=== PATIENT | male | born 1945 | race African-American/Black ===

== ENCOUNTER 2023-01-01 23:43 | Inpatient (IN) | payer OTHER ==
[2023-01-02 01:56] LABS: BASO % 0.1 % (0-2.0); EOS % 0.1 % (0-4.5); HEMATOCRIT 23.1 % (35.4-49); HEMOGLOBIN 7.9 GM/dL (11.7-16.9); LYMPH % 14.9 % (8-40); MCH 27.3 pg (25.7-33.7); MCHC 34.1 g/dl (32.0-35.9); MEAN CELL VOLUME 80.2 fl (80-96); MEAN PLT VOLUME 7.3 fl (7.5-11.1); MONO % 5.6 % (3.8-10.2); NEUT % 79.3 % (42.8-82.8); PLATELET COUNT 230 10^3/uL (134-434); RBC 2.88 M/mm3 (4.00-5.60); RDW 20.7 % (11.9-15.9); WHITE BLOOD COUNT 5.5 K/mm3 (4.0-10.0)
[2023-01-02 02:31] LABS: POTASSIUM 3.6 mmol/L (3.5-5.1)
[2023-01-02 02:33] LABS: ALBUMIN 1.5 g/dl (3.4-5.0); BLOOD UREA NITROGEN 102.7 mg/dL (7-18); CALCIUM 7.7 mg/dL (8.5-10.1)
[2023-01-02 02:37] LABS: BILIRUBIN,TOTAL 0.3 mg/dL (0.2-1); TOT PROT 6.6 g/dl (6.4-8.2)
[2023-01-02] MEDS: SODIUM CHLORIDE 0.9% 500 ML INFUS.BAG IV ONE ×3 (04:00→05:00)
[2023-01-02] MEDS: SODIUM CHLORIDE 1,000 ML IV SCH (04:30)
[2023-01-02] MEDS ORDERED: ACETAMINOPHEN 650 MG/20.3 ML ORAL SOLUTION (CUPS) PO PRN (04:31)
[2023-01-02] MEDS ORDERED: ARTIFICIAL TEARS (POLYVINYL ALCOHOL) OPTH DROPS OU PRN (06:42)
[2023-01-02] MEDS ORDERED: PANTOPRAZOLE 20 MG TABLET PO SCH (07:00)
[2023-01-02 08:05] LABS: MAGNESIUM 2.8 mg/dL (1.8-2.4)
[2023-01-02 08:08] LABS: PHOSPHOROUS 4.8 mg/dL (2.5-4.9)
[2023-01-02] MEDS: COLLAGENASE CLOSTRIDIUM HIST. 30 GRAMS TUBE TP SCH (09:10)
[2023-01-02] MEDS: ASCORBIC ACID 500 MG/5 ML UNIT DOSE CUP GT SCH (09:10)
[2023-01-02] MEDS: MAGNESIUM HYDROX 2400MG/30ML ORAL SUSPENSION 30 ML CUP GT SCH ×2 (09:13→22:32)
[2023-01-02] MEDS: ZINC SULFATE 220 MG CAPSULE (FP) GT SCH (09:13)
[2023-01-02] MEDS: amLODIPine BESYLATE 5 MG TABLET (FP) GT SCH (09:13)
[2023-01-02] MEDS: levETIRAcetam 500 MG/5 ML ORAL SOLUTION (UNIT-DOSE CUPS) GT SCH ×2 (09:13→22:32)
[2023-01-02] MEDS: MULTIVIT-MINERALS ORAL LIQUID PO SCH (09:14)
[2023-01-02] MEDS: FERROUS SO4 300 MG/5 ML ORAL SOLN UNIT DOSE CUPS GT SCH (09:14)
[2023-01-02] MEDS: FAMOTIDINE 20 MG/2.5 ML ORAL LIQUID GT SCH (09:15)
[2023-01-02] MEDS: ALBUTEROL SO4 2.5/IPRATROPIUM 0.5 INH SOL 3 ML VIAL.NEB. NEB SCH ×4 (09:16→20:05)
[2023-01-02] MEDS: FINASTERIDE 5 MG TABLET (FP) GT SCH (09:19)
[2023-01-02] MEDS ORDERED: DEXAMETHASONE 4 MG TABLET (FP) ONE (09:34)
[2023-01-02] MEDS: DEXAMETHASONE 4 MG TABLET (FP) GT SCH (09:37)
[2023-01-02] MEDS ORDERED: AZITHROMYCIN IVPB 250 MG in DEXTROSE 5%-WATER - 250 ML IVPB ONE (10:00)
[2023-01-02] MEDS ORDERED: AZITHROMYCIN 200 MG/5 ML BOTTLE GT ONE (10:00)
[2023-01-02] MEDS: INSULIN SLIDING SCALE (NOVOLOG) 1 VIAL SQ SCH ×4 (10:45→22:33)
[2023-01-02 18:01] VITALS: BMI 23.0
[2023-01-02] MEDS: SENNOSIDES 8.8 MG/5 ML SYRUP GT SCH (22:32)
[2023-01-02] MEDS: MELATONIN 1 MG TABLET GT SCH (22:32)
[2023-01-03] MEDS: SODIUM CHLORIDE 1,000 ML IV SCH (06:42)
[2023-01-03] MEDS: INSULIN SLIDING SCALE (NOVOLOG) 1 VIAL SQ SCH ×4 (06:43→23:30)
[2023-01-03] MEDS: ALBUTEROL SO4 2.5/IPRATROPIUM 0.5 INH SOL 3 ML VIAL.NEB. NEB SCH ×4 (07:30→20:05)
[2023-01-03 08:48] LABS: BASO % 0.2 % (0-2.0); EOS % 0.3 % (0-4.5); HEMATOCRIT 24.9 % (35.4-49); HEMOGLOBIN 8.5 GM/dL (11.7-16.9); LYMPH % 24.5 % (8-40); MCH 27.6 pg (25.7-33.7); MCHC 34.2 g/dl (32.0-35.9); MEAN CELL VOLUME 80.8 fl (80-96); MEAN PLT VOLUME 7.7 fl (7.5-11.1); MONO % 10.3 % (3.8-10.2); NEUT % 64.7 % (42.8-82.8); PLATELET COUNT 277 10^3/uL (134-434); RBC 3.08 M/mm3 (4.00-5.60); RDW 20.9 % (11.9-15.9); WHITE BLOOD COUNT 6.3 K/mm3 (4.0-10.0)
[2023-01-03 08:58] LABS: INR 1.03 (0.83-1.09)
[2023-01-03 09:01] LABS: ACTIVATED PTT 29.6 SECONDS (25.2-36.5)
[2023-01-03] MEDS: FERROUS SO4 300 MG/5 ML ORAL SOLN UNIT DOSE CUPS GT SCH (09:27)
[2023-01-03] MEDS: MULTIVIT-MINERALS ORAL LIQUID PO SCH (09:27)
[2023-01-03] MEDS: ZINC SULFATE 220 MG CAPSULE (FP) GT SCH (09:27)
[2023-01-03] MEDS: FINASTERIDE 5 MG TABLET (FP) GT SCH (09:27)
[2023-01-03] MEDS: MAGNESIUM HYDROX 2400MG/30ML ORAL SUSPENSION 30 ML CUP GT SCH ×2 (09:27→22:50)
[2023-01-03] MEDS: amLODIPine BESYLATE 5 MG TABLET (FP) GT SCH (09:27)
[2023-01-03] MEDS: DEXAMETHASONE 4 MG TABLET (FP) GT SCH (09:28)
[2023-01-03] MEDS: levETIRAcetam 500 MG/5 ML ORAL SOLUTION (UNIT-DOSE CUPS) GT SCH ×2 (09:28→22:51)
[2023-01-03] MEDS: ASCORBIC ACID 500 MG/5 ML UNIT DOSE CUP GT SCH (09:28)
[2023-01-03] MEDS: COLLAGENASE CLOSTRIDIUM HIST. 30 GRAMS TUBE TP SCH (09:28)
[2023-01-03] MEDS ORDERED: amLODIPine BESYLATE 10 MG TABLET (FP) GT SCH (15:37)
[2023-01-03] MEDS ORDERED: amLODIPine BESYLATE 5 MG TABLET (FP) GT ONE (16:00)
[2023-01-03] MEDS: SENNOSIDES 8.8 MG/5 ML SYRUP GT SCH (22:35)
[2023-01-03] MEDS: MELATONIN 1 MG TABLET GT SCH (22:51)
[2023-01-04] MEDS: SODIUM CHLORIDE 1,000 ML IV SCH (06:31)
[2023-01-04] MEDS: INSULIN SLIDING SCALE (NOVOLOG) 1 VIAL SQ SCH ×4 (06:31→21:32)
[2023-01-04] MEDS: ALBUTEROL SO4 2.5/IPRATROPIUM 0.5 INH SOL 3 ML VIAL.NEB. NEB SCH ×4 (07:25→20:05)
[2023-01-04 07:59] LABS: POTASSIUM 3.6 mmol/L (3.5-5.1)
[2023-01-04 08:06] LABS: ALBUMIN 1.4 g/dl (3.4-5.0); BLOOD UREA NITROGEN 90.8 mg/dL (7-18); CALCIUM 7.5 mg/dL (8.5-10.1)
[2023-01-04 08:09] LABS: CREATININE 2.7 mg/dL (0.55-1.3)
[2023-01-04 08:11] LABS: BILIRUBIN,TOTAL 0.3 mg/dL (0.2-1); TOT PROT 6.2 g/dl (6.4-8.2)
[2023-01-04] MEDS: DEXAMETHASONE 4 MG TABLET (FP) GT SCH (09:14)
[2023-01-04] MEDS: ZINC SULFATE 220 MG CAPSULE (FP) GT SCH (09:15)
[2023-01-04] MEDS: MAGNESIUM HYDROX 2400MG/30ML ORAL SUSPENSION 30 ML CUP GT SCH ×2 (09:15→21:33)
[2023-01-04] MEDS: amLODIPine BESYLATE 10 MG TABLET (FP) GT SCH (09:15)
[2023-01-04] MEDS: MULTIVIT-MINERALS ORAL LIQUID PO SCH (09:15)
[2023-01-04] MEDS: levETIRAcetam 500 MG/5 ML ORAL SOLUTION (UNIT-DOSE CUPS) GT SCH ×2 (09:15→21:31)
[2023-01-04] MEDS: FINASTERIDE 5 MG TABLET (FP) GT SCH (09:15)
[2023-01-04] MEDS: ASCORBIC ACID 500 MG/5 ML UNIT DOSE CUP GT SCH (09:15)
[2023-01-04] MEDS: COLLAGENASE CLOSTRIDIUM HIST. 30 GRAMS TUBE TP SCH (09:16)
[2023-01-04] MEDS: FERROUS SO4 300 MG/5 ML ORAL SOLN UNIT DOSE CUPS GT SCH (09:16)
[2023-01-04] MEDS: FAMOTIDINE 20 MG/2.5 ML ORAL LIQUID GT SCH (15:29)
[2023-01-04] MEDS ORDERED: INSULIN (NOVOLOG) ASPART 100 UNITS/ML 10ML VIAL ONE ×2 (17:39→21:10)
[2023-01-04] MEDS: MELATONIN 1 MG TABLET GT SCH (21:32)
[2023-01-04] MEDS: SENNOSIDES 8.8 MG/5 ML SYRUP GT SCH (22:21)
[2023-01-05] MEDS ORDERED: INSULIN (NOVOLOG) ASPART 100 UNITS/ML 10ML VIAL ONE ×2 (06:26→17:02)
[2023-01-05] MEDS: INSULIN SLIDING SCALE (NOVOLOG) 1 VIAL SQ SCH ×5 (06:29→21:20)
[2023-01-05 07:31] LABS: BASO % 0.2 % (0-2.0); EOS % 0.5 % (0-4.5); HEMATOCRIT 23.8 % (35.4-49); HEMOGLOBIN 7.6 GM/dL (11.7-16.9); LYMPH % 16.3 % (8-40); MCH 26.3 pg (25.7-33.7); MCHC 31.9 g/dl (32.0-35.9); MEAN CELL VOLUME 82.4 fl (80-96); MONO % 10.8 % (3.8-10.2); NEUT % 72.2 % (42.8-82.8); PLATELET COUNT 256 10^3/uL (134-434); RBC 2.89 M/mm3 (4.00-5.60); RDW 21.3 % (11.9-15.9); WHITE BLOOD COUNT 7.7 K/mm3 (4.0-10.0)
[2023-01-05 07:43] LABS: POTASSIUM 3.5 mmol/L (3.5-5.1)
[2023-01-05 07:45] LABS: CALCIUM 7.3 mg/dL (8.5-10.1)
[2023-01-05 07:46] LABS: ALBUMIN 1.5 g/dl (3.4-5.0); BLOOD UREA NITROGEN 90.6 mg/dL (7-18)
[2023-01-05 07:49] LABS: CREATININE 2.7 mg/dL (0.55-1.3)
[2023-01-05 07:50] LABS: TOT PROT 6.2 g/dl (6.4-8.2)
[2023-01-05 07:51] LABS: BILIRUBIN,TOTAL 0.2 mg/dL (0.2-1)
[2023-01-05 08:45] LABS: ANISOCYTOSIS 2+; MACROCYTOSIS 1+; ROULEAU 1+
[2023-01-05] MEDS: ALBUTEROL SO4 2.5/IPRATROPIUM 0.5 INH SOL 3 ML VIAL.NEB. NEB SCH ×4 (09:39→20:33)
[2023-01-05] MEDS: MULTIVIT-MINERALS ORAL LIQUID PO SCH (10:44)
[2023-01-05] MEDS: FERROUS SO4 300 MG/5 ML ORAL SOLN UNIT DOSE CUPS GT SCH (10:45)
[2023-01-05] MEDS: DEXAMETHASONE 4 MG TABLET (FP) GT SCH (10:45)
[2023-01-05] MEDS: levETIRAcetam 500 MG/5 ML ORAL SOLUTION (UNIT-DOSE CUPS) GT SCH ×2 (10:45→21:08)
[2023-01-05] MEDS: amLODIPine BESYLATE 10 MG TABLET (FP) GT SCH (10:46)
[2023-01-05] MEDS: METOPROLOL TARTRATE 25 MG TABLET (FP) GT SCH ×2 (10:46→21:08)
[2023-01-05] MEDS: ZINC SULFATE 220 MG CAPSULE (FP) GT SCH (10:46)
[2023-01-05] MEDS: MAGNESIUM HYDROX 2400MG/30ML ORAL SUSPENSION 30 ML CUP GT SCH ×2 (10:46→21:09)
[2023-01-05] MEDS: ASCORBIC ACID 500 MG/5 ML UNIT DOSE CUP GT SCH (10:47)
[2023-01-05] MEDS: FINASTERIDE 5 MG TABLET (FP) GT SCH (10:47)
[2023-01-05] MEDS: COLLAGENASE CLOSTRIDIUM HIST. 30 GRAMS TUBE TP SCH (13:47)
[2023-01-05] MEDS: MELATONIN 1 MG TABLET GT SCH (21:09)
[2023-01-05] MEDS: SENNOSIDES 8.8 MG/5 ML SYRUP GT SCH (22:00)
[2023-01-06] MEDS: FAMOTIDINE 20 MG/2.5 ML ORAL LIQUID GT SCH (06:40)
[2023-01-06] MEDS: INSULIN SLIDING SCALE (NOVOLOG) 1 VIAL SQ SCH ×4 (06:46→22:20)
[2023-01-06] MEDS: ALBUTEROL SO4 2.5/IPRATROPIUM 0.5 INH SOL 3 ML VIAL.NEB. NEB SCH ×4 (07:50→20:34)
[2023-01-06 08:02] LABS: POTASSIUM 3.8 mmol/L (3.5-5.1)
[2023-01-06 08:08] LABS: BLOOD UREA NITROGEN 93.7 mg/dL (7-18); CALCIUM 7.7 mg/dL (8.5-10.1)
[2023-01-06 08:11] LABS: CREATININE 2.8 mg/dL (0.55-1.3)
[2023-01-06] MEDS: MAGNESIUM HYDROX 2400MG/30ML ORAL SUSPENSION 30 ML CUP GT SCH ×2 (11:08→22:19)
[2023-01-06] MEDS: ASCORBIC ACID 500 MG/5 ML UNIT DOSE CUP GT SCH (11:08)
[2023-01-06] MEDS: amLODIPine BESYLATE 10 MG TABLET (FP) GT SCH (11:10)
[2023-01-06] MEDS: FINASTERIDE 5 MG TABLET (FP) GT SCH (11:10)
[2023-01-06] MEDS: METOPROLOL TARTRATE 25 MG TABLET (FP) GT SCH ×2 (11:10→22:19)
[2023-01-06] MEDS: levETIRAcetam 500 MG/5 ML ORAL SOLUTION (UNIT-DOSE CUPS) GT SCH ×2 (11:11→22:19)
[2023-01-06] MEDS: ZINC SULFATE 220 MG CAPSULE (FP) GT SCH (11:11)
[2023-01-06] MEDS: MULTIVIT-MINERALS ORAL LIQUID PO SCH (11:11)
[2023-01-06] MEDS: FERROUS SO4 300 MG/5 ML ORAL SOLN UNIT DOSE CUPS GT SCH (11:11)
[2023-01-06] MEDS: COLLAGENASE CLOSTRIDIUM HIST. 30 GRAMS TUBE TP SCH (11:12)
[2023-01-06] MEDS: SODIUM CHLORIDE 0.45%/POT 20 MEQ/1,000 ML INFUS.BAG IV SCH (13:27)
[2023-01-06] MEDS ORDERED: DEXTROSE 5%-WATER - 1,000 ML IV SCH (15:45)
[2023-01-06] MEDS: MELATONIN 1 MG TABLET GT SCH (22:19)
[2023-01-07] MEDS: SENNOSIDES 8.8 MG/5 ML SYRUP GT SCH ×2 (03:15→23:33)
[2023-01-07] MEDS: SODIUM CHLORIDE 0.45%/POT 20 MEQ/1,000 ML INFUS.BAG IV SCH (06:33)
[2023-01-07] MEDS: INSULIN SLIDING SCALE (NOVOLOG) 1 VIAL SQ SCH ×4 (06:33→22:02)
[2023-01-07 08:01] LABS: CALCIUM 7.3 mg/dL (8.5-10.1)
[2023-01-07 08:03] LABS: BLOOD UREA NITROGEN 88.9 mg/dL (7-18)
[2023-01-07 08:05] LABS: CREATININE 2.6 mg/dL (0.55-1.3)
[2023-01-07] MEDS: ASCORBIC ACID 500 MG/5 ML UNIT DOSE CUP GT SCH (10:42)
[2023-01-07] MEDS: MAGNESIUM HYDROX 2400MG/30ML ORAL SUSPENSION 30 ML CUP GT SCH ×2 (10:43→22:01)
[2023-01-07] MEDS: MULTIVIT-MINERALS ORAL LIQUID PO SCH (10:43)
[2023-01-07] MEDS: FERROUS SO4 300 MG/5 ML ORAL SOLN UNIT DOSE CUPS GT SCH (10:44)
[2023-01-07] MEDS: METOPROLOL TARTRATE 25 MG TABLET (FP) GT SCH ×2 (10:44→22:01)
[2023-01-07] MEDS: amLODIPine BESYLATE 10 MG TABLET (FP) GT SCH (10:44)
[2023-01-07] MEDS: ZINC SULFATE 220 MG CAPSULE (FP) GT SCH (10:44)
[2023-01-07] MEDS: FINASTERIDE 5 MG TABLET (FP) GT SCH (10:44)
[2023-01-07] MEDS: COLLAGENASE CLOSTRIDIUM HIST. 30 GRAMS TUBE TP SCH (10:45)
[2023-01-07] MEDS: levETIRAcetam 500 MG/5 ML ORAL SOLUTION (UNIT-DOSE CUPS) GT SCH ×2 (10:45→22:00)
[2023-01-07] MEDS: DEXTROSE 5%-WATER - 1,000 ML IV SCH (12:27)
[2023-01-07] MEDS: MELATONIN 1 MG TABLET GT SCH (22:01)
[2023-01-08] MEDS: INSULIN SLIDING SCALE (NOVOLOG) 1 VIAL SQ SCH ×4 (06:29→22:45)
[2023-01-08 07:47] LABS: POTASSIUM 4.3 mmol/L (3.5-5.1)
[2023-01-08 07:55] LABS: BLOOD UREA NITROGEN 86.3 mg/dL (7-18); CALCIUM 7.4 mg/dL (8.5-10.1)
[2023-01-08 07:56] LABS: ALBUMIN 1.5 g/dl (3.4-5.0)
[2023-01-08 07:58] LABS: CREATININE 2.5 mg/dL (0.55-1.3)
[2023-01-08 08:00] LABS: BILIRUBIN,TOTAL 0.2 mg/dL (0.2-1)
[2023-01-08 08:36] VITALS: RESP 18
[2023-01-08 09:34] LABS: BASO % 0.6 % (0-2.0); EOS % 5.7 % (0-4.5); HEMATOCRIT 24.7 % (35.4-49); HEMOGLOBIN 7.8 GM/dL (11.7-16.9); LYMPH % 18.8 % (8-40); MCH 27.1 pg (25.7-33.7); MCHC 31.4 g/dl (32.0-35.9); MEAN CELL VOLUME 86.2 fl (80-96); MEAN PLT VOLUME 7.6 fl (7.5-11.1); MONO % 7.8 % (3.8-10.2); NEUT % 67.1 % (42.8-82.8); PLATELET COUNT 223 10^3/uL (134-434); RBC 2.87 M/mm3 (4.00-5.60); RDW 21.6 % (11.9-15.9); WHITE BLOOD COUNT 8.2 K/mm3 (4.0-10.0)
[2023-01-08 10:05] LABS: ANISOCYTOSIS 2+; MACROCYTOSIS 0
[2023-01-08] MEDS: ASCORBIC ACID 500 MG/5 ML UNIT DOSE CUP GT SCH (10:22)
[2023-01-08] MEDS: MAGNESIUM HYDROX 2400MG/30ML ORAL SUSPENSION 30 ML CUP GT SCH ×2 (10:22→22:11)
[2023-01-08] MEDS: levETIRAcetam 500 MG/5 ML ORAL SOLUTION (UNIT-DOSE CUPS) GT SCH ×2 (10:22→22:11)
[2023-01-08] MEDS: FINASTERIDE 5 MG TABLET (FP) GT SCH (10:22)
[2023-01-08] MEDS: amLODIPine BESYLATE 10 MG TABLET (FP) GT SCH (10:23)
[2023-01-08] MEDS: FERROUS SO4 300 MG/5 ML ORAL SOLN UNIT DOSE CUPS GT SCH (10:23)
[2023-01-08] MEDS: MULTIVIT-MINERALS ORAL LIQUID PO SCH (10:23)
[2023-01-08] MEDS: ZINC SULFATE 220 MG CAPSULE (FP) GT SCH (10:23)
[2023-01-08] MEDS: METOPROLOL TARTRATE 25 MG TABLET (FP) GT SCH ×2 (10:23→22:11)
[2023-01-08] MEDS: COLLAGENASE CLOSTRIDIUM HIST. 30 GRAMS TUBE TP SCH (10:57)
[2023-01-08] MEDS: DEXTROSE 5%-WATER - 1,000 ML IV SCH (10:57)
[2023-01-08 19:23] VITALS: PULSE 70
[2023-01-08 20:37] VITALS: BP 146/78; TEMP 97.8
[2023-01-08] MEDS ORDERED: INSULIN (NOVOLOG) ASPART 100 UNITS/ML 10ML VIAL ONE (21:14)
[2023-01-08] MEDS: FAMOTIDINE 20 MG/2.5 ML ORAL LIQUID GT SCH (22:09)
[2023-01-08] MEDS: MELATONIN 1 MG TABLET GT SCH (22:11)
[2023-01-09] MEDS: SENNOSIDES 8.8 MG/5 ML SYRUP GT SCH (00:21)
== END 2023-01-08 23:40 | DRG 811 ==
LOC: JER 23:43 → JERBED 01-02 03:15 → OBSVTOIN 01-02 10:24 → J4W 01-02 16:58
PROVIDERS: ADMIT Internal Medicine; ATTEND Internal Medicine
DX: D64.9 Anemia, unspecified (principal); L89.154 Pressure ulcer of sacral region, stage 4; L89.613 Pressure ulcer of right heel, stage 3; L89.623 Pressure ulcer of left heel, stage 3; R53.2 Functional quadriplegia; U07.1 COVID-19; N17.9 Acute kidney failure, unspecified; F03.90 Unspecified dementia, unspecified severity, without behavioral disturbance, psychotic disturbance, mood disturbance, and anxiety; R60.1 Generalized edema; I25.10 Atherosclerotic heart disease of native coronary artery without angina pectoris; E11.9 Type 2 diabetes mellitus without complications; I10 Essential (primary) hypertension; R89.9 Unspecified abnormal finding in specimens from other organs, systems and tissues; Z93.1 Gastrostomy status; Z95.5 Presence of coronary angioplasty implant and graft; Z86.73 Personal history of transient ischemic attack (TIA), and cerebral infarction without residual deficits
CPT/HCPCS: 0241U-QW; 36415; 71045-TC-FY; 76775-TC; 76856-TC; 80048; 80053; 82272; 82962; 83735; 84100; 84155; 84165; 84484; 85025; 85610; 85730; 86850; 86900; 86901; 87635; 93005; 93010; 94640; 99285-25; E0186; G0378; J3480